=== PATIENT | female | born 1980 | race Asian ===

== ENCOUNTER 2024-08-08 09:43 | Emergency (ER) | payer OTHER ==
[~2024-08-08] VITALS: Ht 160 cm; Wt 54.4 kg
[2024-08-08 09:58] VITALS: PULSE 100; RESP 18; TEMP 99
[2024-08-08] MEDS ORDERED: CORICIDIN COLD1 EACH PO (11:00)
[2024-08-08] MEDS ORDERED: AMOXICILLIN500 MG PO (11:05)
[2024-08-08] MEDS: IBUPROFEN 400 MG TAB PO ONE (11:06)
[2024-08-08 11:18] VITALS: BP 124/70; PULSE 92; RESP 18; TEMP 98.8; O2SAT 88
== END 2024-08-08 11:23 | disposition home or self-care (01) ==
LOC: FSED 09:50
DX: R05.9 Cough, unspecified (principal); J06.9 Acute upper respiratory infection, unspecified
CPT/HCPCS: 71046; 99283